=== PATIENT | female | born 1990 | race Caucasian/White ===

== ENCOUNTER 2016-06-07 14:57 | Emergency (ER) | payer MEDICAID ==
[~2016-06-07] VITALS: Ht 167.6 cm; Wt 95.3 kg
[~2016-06-07 14:57] MED LIST: CEPH500C3 PO; PROM25SU8 PO; Z.0.NO CURRENT MEDS
[2016-06-07 15:12] VITALS: BP 129/73; PULSE 100; RESP 16; TEMP 97.6; O2SAT 97
[2016-06-07] MEDS ORDERED: LORazepam 2 MG/ML VIAL IM ONE (15:45)
--- NOTE | 2016-06-07 15:59 | PD ---
HPI Chief Complaint: Anxiety Time Seen by Provider: 15:34 Travel History International Travel<30 days: No Contact w/Intl Traveler<30days: No Traveled to known affect area: No History of Present Illness HPI 25 year-old woman with a history of anxiety presents complaining that she had an anxiety attack starting this morning. That she often wakes up from sleep with her anxiety. She was on benzodiazepines in the past. Denies ever being on an SSRI. She is not on any medications now. Feeling bad just times today. Denies any change in stress levels. No other complaints. History Past Medical History Narrative Medical Anxiety Influenza Vaccination: No LMP: 05/28/16 : 1 Para: 1 Social History Alcohol Use: Yes (SOCIALLY) Tobacco Use: Yes (1 PPD) Allergies-Medications (Allergen,Severity, Reaction): Coded Allergies: No Known Allergies (Verified , 06/07/16) Reported Meds & Prescriptions Reported Meds & Active Scripts Active No Active Prescriptions or Reported Medications Review of Systems Except as stated in HPI: all other systems reviewed are Neg Physical Exam Narrative GENERAL: Well-appearing 25-year-old woman, no acute distress. SKIN: Warm and dry. NECK: Trachea midline. No JVD. CARDIOVASCULAR: Regular rate and rhythm. No murmur appreciated. RESPIRATORY: No accessory muscle use. Clear to auscultation. Breath sounds equal bilaterally. GASTROINTESTINAL: Abdomen soft, non-tender, nondistended. Hepatic and splenic margins not palpable. MUSCULOSKELETAL: No obvious deformities. No clubbing. No cyanosis. No edema. NEUROLOGICAL: Awake and alert. No obvious cranial nerve deficits. Motor grossly within normal limits. Normal speech. PSYCHIATRIC: Appropriate mood and affect; insight and judgment normal. Data Data Last Documented VS Vital Signs Date Time Temp Pulse Resp B/P Pulse Ox O2 Delivery O2 Flow Rate FiO2 06/07/16 15:12 97.6 100 16 129/73 97 Orders Lorazepam Inj (Ativan Inj) (06/07/16 15:45) [facility] Medical Decision Making Medical Screen Exam Complete: Yes Emergency Medical Condition: Yes Differential Diagnosis Anxiety, stress reaction, other Narrative Course Medical decision making 25-year-old presents with acute worsening of anxiety. She looks well. Normal mental status, normal affect. Recommend outpatient follow-up. Diagnosis Primary Impression: Anxiety Patient Instructions: General Instructions Additional Instructions: Follow-up with a primary physician for further evaluation and treatment of your anxiety. Med/Other Pt SpecificInfo: No Change to Meds Scripts No Active Prescriptions or Reported Meds Disposition: 01 DISCHARGE HOME Condition: Stable Carlos Read MD Jun 07, 2016 15:59
[2016-06-07 16:22] VITALS: BP 126/74
== END 2016-06-07 16:24 | disposition home or self-care (01) ==
LOC: PHED 14:57
DX: F41.9 Anxiety disorder, unspecified (principal); F17.210 Nicotine dependence, cigarettes, uncomplicated
CPT/HCPCS: 96372; 99283; J2060

== ENCOUNTER 2017-10-09 15:54 | Emergency (ER) | payer MEDICAID ==
[~2017-10-09] VITALS: Ht 167.6 cm; Wt 107.2 kg
[~2017-10-09 15:54] MED LIST changes: -CEPH500C3 PO; +DICY10 PO; +LORA1TAB12 PO; +PARO10TA2 PO; -PROM25SU8 PO; +PROT40TA PO; -Z.0.NO CURRENT MEDS
[2017-10-09 15:56] VITALS: BP 143/99; PULSE 99; RESP 16; TEMP 98.5; O2SAT 98
--- NOTE | 2017-10-09 16:14 | PD ---
HPI Chief Complaint: Allergic/Adverse Reaction Time Seen by Provider: 16:05 Travel History International Travel<30 days: No Contact w/Intl Traveler<30days: No Traveled to known affect area: No History of Present Illness HPI Patient was at a dentist office earlier today when she was given a couple of shots into her gum, withIN 10 minutes of receiving that shot the patient started to feel jittery and anxious and felt heart racing and pounding. Patient denied any alleviating or aggravating factors. Patient denies any associated factors such as fever, rash, shortness of breath, cough, sore throat , runny nose, nausea, vomiting, diarrhea, urgency/frequency/dysuria. No known drug allergy Past medical history significant for 2, history of depression/anxiety , social alcohol use, and one pack a day of cigarettes use PFSH Past Medical History Anxiety: Yes Depression: Yes Immunizations Current: Yes ?: Not : 1 Para: 1 Past Surgical History Section: Yes (X2) Social History Alcohol Use: Yes (SOCIALLY) Tobacco Use: Yes (1 PPD) Substance Use: No Allergies-Medications (Allergen,Severity, Reaction): Coded Allergies: No Known Allergies (Verified Adverse Reaction, Unknown, 10/09/17) Reported Meds & Prescriptions Reported Meds & Active Scripts Active Reported Lorazepam 1 Mg Tab 1 Mg PO Q8H PRN Review of Systems General / Constitutional: No: Fever Eyes: No: Visual changes HENT: No: Headaches Cardiovascular: Positive: Palpitations Respiratory: No: Shortness of Breath Gastrointestinal: No: Abdominal Pain Genitourinary: No: Dysuria Musculoskeletal: No: Pain Skin: No Rash Neurologic: No: Weakness Psychiatric: Positive: Anxiety Endocrine: No: Polydipsia Hematologic/Lymphatic: No: Easy Bruising Physical Exam Narrative GENERAL: SKIN: Warm and dry. HEAD: Atraumatic. Normocephalic. EYES: Pupils equal and round. No scleral icterus. No injection or drainage. ENT: No nasal bleeding or discharge. Mucous membranes pink and moist. No lip or tongue angioedema, no uvular edema, NECK: Trachea midline. No JVD. No stridor CARDIOVASCULAR: Regular rhythm tachycardic rate RESPIRATORY: No accessory muscle use. Clear to auscultation. Breath sounds equal bilaterally. No wheezing GASTROINTESTINAL: Abdomen soft, non-tender, nondistended. MUSCULOSKELETAL: Extremities without clubbing, cyanosis, or edema. No obvious deformities. NEUROLOGICAL: Awake and alert. No obvious cranial nerve deficits. Motor grossly within normal limits. Five out of 5 muscle strength in the arms and legs. Normal speech. PSYCHIATRIC: Appropriate mood and affect; insight and judgment normal. Data Data Last Documented VS Vital Signs Date Time Temp Pulse Resp B/P (MAP) Pulse Ox O2 Delivery O2 Flow Rate FiO2 10/09/17 17:20 87 16 128/73 (91) 99 Room Air 10/09/17 15:56 98.5 Orders Orders Complete Blood Count With Diff (10/09/17 16:14) Comprehensive Metabolic Panel (10/09/17 16:14) Ecg Monitoring (10/09/17 16:14) Iv Access Insert/Monitor (10/09/17 16:14) Oximetry (10/09/17 16:14) Sodium Chlorid 0.9% 500 Ml Inj (Ns 500 M (10/09/17 16:15) Lorazepam Inj (Ativan Inj) (10/09/17 16:15) Urinalysis - C+S If Indicated (10/09/17 16:14) Ed Urine Pregnancytest Poc (10/09/17 16:14) Drug Screen, Random Urine (10/09/17 16:14) Urine Culture (10/09/17 16:30) Labs Laboratory Tests Test 10/09/17 16:30 White Blood Count 8.3 TH/MM3 Red Blood Count 4.21 MIL/MM3 Hemoglobin 12.9 GM/DL Hematocrit 38.4 % Mean Corpuscular Volume 91.2 FL Mean Corpuscular Hemoglobin 30.7 PG Mean Corpuscular Hemoglobin Concent 33.7 % Red Cell Distribution Width 12.4 % Platelet Count 319 TH/MM3 Mean Platelet Volume 7.4 FL Neutrophils (%) (Auto) 59.4 % Lymphocytes (%) (Auto) 33.1 % Monocytes (%) (Auto) 4.2 % Eosinophils (%) (Auto) 2.7 % Basophils (%) (Auto) 0.6 % Neutrophils # (Auto) 5.0 TH/MM3 Lymphocytes # (Auto) 2.8 TH/MM3 Monocytes # (Auto) 0.3 TH/MM3 Eosinophils # (Auto) 0.2 TH/MM3 Basophils # (Auto) 0.0 TH/MM3 CBC Comment DIFF FINAL Differential Comment Urine Collection Type CLEAN CATCH Urine Color PINK Urine Turbidity CLEAR Urine pH 7.0 Urine Specific [place] LESS/EQUAL 1.005 Urine Protein 30 mg/dL Urine Glucose (UA) NEG mg/dL Urine Ketones NEG mg/dL Urine Occult Blood LARGE Urine Nitrite NEG Urine Bilirubin NEG Urine Urobilinogen 0.2 MG/DL Urine Leukocyte Esterase MOD Urine RBC 4-9 /hpf Urine WBC 9-14 /hpf Urine WBC Clumps FEW Urine Squamous Epithelial Cells 6-8 /hpf Urine Amorphous Sediment MOD Urine Bacteria FEW /hpf Microscopic Urinalysis Comment CULTURE INDICATED Urine Collection Time 1630 Blood Urea Nitrogen 6 MG/DL Creatinine 0.85 MG/DL Random Glucose 152 MG/DL Total Protein 7.3 GM/DL Albumin 3.6 GM/DL Calcium Level 8.9 MG/DL Alkaline Phosphatase 67 U/L Aspartate Amino Transf (AST/SGOT) 49 U/L Alanine Aminotransferase (ALT/SGPT) 89 U/L Total Bilirubin 0.4 MG/DL Sodium Level 138 MEQ/L Potassium Level 3.3 MEQ/L Chloride Level 106 MEQ/L Carbon Dioxide Level 23.4 MEQ/L Anion Gap 9 MEQ/L Estimat Glomerular Filtration Rate 80 ML/MIN Urine Opiates Screen NEG Urine Barbiturates Screen NEG Urine Amphetamines Screen NEG Urine Benzodiazepines Screen NEG Urine Cocaine Screen NEG Urine Cannabinoids Screen NEG MDM Medical Decision Making Medical Screen Exam Complete: Yes Emergency Medical Condition: Yes Medical Record Reviewed: Yes Differential Diagnosis Allergic reaction versus angioedema versus adverse reaction anemia versus dehydration Narrative Course Based on the patient's tachycardia and slight hypertension I believe that the patient possibly had injections of lidocaine with epi, and some of them may have gotten into the general circulation, patient will be given IV fluids and provided with benzodiazepine 1 IV the counter and will have a CBC CMP and a TSH to evaluate if any secondary reasons CBC CMP and TSH were all within normal limits In addition the patient's symptoms all fully resolved after the patient received IV fluids and single dose of Ativan Diagnosis Primary Impression: Palpitations due to adverse effect of epinephrine Patient Instructions: General Instructions Disposition: 01 DISCHARGE HOME Condition: Stable Josh Hernández MD Oct 09, 2017 16:14
[2017-10-09] MEDS ORDERED: SODIUM CHLORID 0.9% 500 ML INJ 500 ML IV ONE (16:15)
[2017-10-09] MEDS ORDERED: LORazepam 2 MG/ML VIAL IV PUSH ONE (16:15)
[2017-10-09 16:20] VITALS: O2SAT 98
[2017-10-09 16:40] VITALS: BP 139/67; PULSE 100; RESP 20; O2SAT 98
[2017-10-09 16:46] LABS: BASOPHIL % 0.6 % (0.0-2.0); EOSINOPHIL # 0.2 TH/MM3 (0-0.4); EOSINOPHIL % 2.7 % (0.0-4.0); HEMATOCRIT 38.4 % (35.0-46.0); HEMOGLOBIN 12.9 GM/DL (11.6-15.3); LYMPH % 33.1 % (9.0-44.0); LYMPHOCYTE # 2.8 TH/MM3 (1.0-4.8); MEAN CELL VOLUME 91.2 FL (80.0-100.0); MEAN CORPUSCULAR HEMOGLOBIN 30.7 PG (27.0-34.0); MEAN CORPUSCULAR HGB CONC 33.7 % (32.0-36.0); MEAN PLATELET VOLUME 7.4 FL (7.0-11.0); MONO % 4.2 % (0.0-8.0); MONOCYTE # 0.3 TH/MM3 (0-0.9); NEUT % 59.4 % (16.0-70.0); PLATELET COUNT 319 TH/MM3 (150-450); RED BLOOD COUNT 4.21 MIL/MM3 (4.00-5.30); RED CELL DISTRIBUTION WIDTH 12.4 % (11.6-17.2); WHITE BLOOD COUNT 8.3 TH/MM3 (4.0-11.0)
[2017-10-09 16:47] LABS: BILIRUBIN, URINE NEG (NEG); BLOOD, URINE LARGE (NEG); GLUCOSE,URINE NEG (NEG); KETONE, URINE NEG (NEG); NITRITE,URINE NEG (NEG); URINE LEUKOCYTE ESTERASE MOD (NEG)
[2017-10-09 16:54] LABS: BACTERIA, URINE FEW /hpf; CHLORIDE 106 MEQ/L (98-107); SODIUM (NA) 138 MEQ/L (136-145); URINE COLOR PINK (YELLW/STRAW)
[2017-10-09 16:55] LABS: AMORPHOUS SEDIMENT, URINE MOD; WHITE BLOOD CELL CLUMPS FEW
[2017-10-09 16:57] LABS: CALCIUM 8.9 MG/DL (8.5-10.1)
[2017-10-09 16:58] LABS: ALBUMIN 3.6 GM/DL (3.4-5.0); BICARBONATE 23.4 MEQ/L (21.0-32.0); BLOOD UREA NITROGEN 6 MG/DL (7-18); GLUCOSE,RANDOM 152 MG/DL (74-106)
[2017-10-09 17:01] LABS: ALT (GPT) 89 U/L (10-53); AST (GOT) 49 U/L (15-37); CREATININE 0.85 MG/DL (0.50-1.00); GLOMERULAR FILTRATION RATE 80 ML/MIN (>89)
[2017-10-09 17:02] LABS: TOTAL BILIRUBIN ADULT 0.4 MG/DL (0.2-1.0); TOTAL PROTEIN 7.3 GM/DL (6.4-8.2)
[2017-10-09 17:04] LABS: ALKALINE PHOSPHATASE 67 U/L (45-117)
[2017-10-09 17:20] VITALS: BP 128/73; PULSE 87; RESP 16; O2SAT 99
[2017-10-09] MEDS ORDERED: MACR100C2 PO (17:42)
== END 2017-10-09 18:22 | disposition home or self-care (01) ==
LOC: PHED 15:54
DX: R00.2 Palpitations (principal); T44.5X5A Adverse effect of predominantly beta-adrenoreceptor agonists, initial encounter; N39.0 Urinary tract infection, site not specified; F41.9 Anxiety disorder, unspecified; F32.9 Major depressive disorder, single episode, unspecified; F17.200 Nicotine dependence, unspecified, uncomplicated; Z79.899 Other long term (current) drug therapy
CPT/HCPCS: 80053; 80307; 81001; 84703; 85025; 87086; 96361; 96374; 99284; J2060; J7040